=== PATIENT | female | born 1940 | race Caucasian/White ===

== ENCOUNTER 2016-08-07 05:34 | Day surgery (SDC) | payer MEDICARE ==
[~2016-08-07] VITALS: Ht 154.9 cm; Wt 69.0 kg
[~2016-08-07 05:34] MED LIST: ASPI81 PO; AZOR5TAB2 PO; BIOT1CAP2; CALTTAB5 PO; CIPR500T4 PO; CYAN100017 PO; D32000CA PO; EZET10 PO; FISH1000 PO; HYDR-3533 PO; LORA5TAB PO; MAGN400T PO; METF500 PO; PRIL10CA PO; ZOFR4TAB3 SL
[2016-08-07 06:11] VITALS: BP 160/70; PULSE 74; RESP 18; O2SAT 98
[2016-08-07] MEDS ORDERED: VITA10003 PO (06:23)
[2016-08-07] MEDS ORDERED: ALPR0.25 PO (06:23)
[2016-08-07] MEDS ORDERED: ASPI81TA11 PO (06:23)
[2016-08-07] MEDS ORDERED: COENPOW21 PO (06:23)
[2016-08-07] MEDS ORDERED: CALTTAB PO (06:23)
[2016-08-07] MEDS ORDERED: AMLO5 PO (06:23)
[2016-08-07] MEDS ORDERED: CITA10TA4 PO (06:23)
[2016-08-07] MEDS ORDERED: FISH120014 PO (06:23)
[2016-08-07] MEDS ORDERED: VITA100021 SL (06:23)
[2016-08-07] MEDS ORDERED: METF500T PO (06:23)
[2016-08-07] MEDS ORDERED: ZETI10TA5 PO (06:23)
[2016-08-07] MEDS ORDERED: SITA25 PO (06:23)
[2016-08-07 06:27] LABS: AUTOMATED NEUTROPHIL # 5.3 TH/MM3 (1.8-7.7); BASOPHIL # 0.1 TH/MM3 (0-0.2); BASOPHIL % 0.7 % (0.0-2.0); EOSINOPHIL # 0.4 TH/MM3 (0-0.4); EOSINOPHIL % 4.3 % (0.0-4.0); HEMATOCRIT 41.2 % (35.0-46.0); HEMO FLAGS DIFF FINAL; LYMPH % 24.3 % (9.0-44.0); MEAN CELL VOLUME 85.1 FL (80.0-100.0); MEAN CORPUSCULAR HEMOGLOBIN 28.2 PG (27.0-34.0); MEAN CORPUSCULAR HGB CONC 33.1 % (32.0-36.0); MONO % 7.3 % (0.0-8.0); NEUT % 63.4 % (16.0-70.0); PLATELET COUNT 215 TH/MM3 (150-450); RED BLOOD COUNT 4.84 MIL/MM3 (4.00-5.30); RED CELL DISTRIBUTION WIDTH 12.9 % (11.6-17.2); WHITE BLOOD COUNT 8.3 TH/MM3 (4.0-11.0)
[2016-08-07 06:40] LABS: APTT (PATIENT) 27.6 SEC (24.3-30.1); PROTHROMBIN TIME - PATIENT 10.7 SEC (9.8-11.6)
[2016-08-07 06:55] LABS: BICARBONATE 25.2 MEQ/L (21.0-32.0); POTASSIUM 4.4 MEQ/L (3.5-5.1)
[2016-08-07] MEDS ORDERED: HEPARIN-NS/PF INJ 500 ML ONE (07:03)
--- NOTE | 2016-08-07 07:51 | CATHPROC ---
[employer] HIS Report Study Information Study Number Admission Scheduled Start Study Start [id number] 08/07/2016 08/07/2016 Aug 07 2016 6:46AM Study Type Ward Service Left Heart Cath Cardiac Catheterization Referring Institution Admit Source Facility Department 1 Other [facility] College Director Physician and Clinical Staff Initial Gibran Aguilar Certified Adaptive Physical Educator Manuelito Mcdonald,JAC Recorder Kirill Anthony,RT(R) TECH2 Scrub Moris Puentes,RT(R) Procedures Performed Procedure Location (Site) Vessel Name Coronary Angiograms LCA Left Coronary Coronary Angiograms RCA Right Coronary L Heart Cath LV Gram-hand inj. LV LV Ventricle Equipment Time Manager Inventory Control Description Size Mfg Part Number Used/Scraped TRANSDUCER, TRUWAVE 06:47 GRIMES DIETRICH * [id number] Used W/STOCKCOCK [id number] *[id number] *[id number] 06:47 MED[employer] PACK, CCL CUSTOM * Used *[id number] 06:47 Bio PACER PEN, SKIN DUAL W/ RULER * [id number] Used [facility]-4F-- 07:15 [employer] MEDICAL SHEATH, FR4.5 PRELUDE 11CM FR 4.5 Used [id number] 06:47 [employer] MEDICAL WIRE, 3MMJ .035 180CM 180CM Used *[id number] 06:47 NAMIC MANIFOLD, 4 PORT * Used *[id number] 06:47 [employer] OMNIPAQUE, 350 MG, 100ML 100ML [id number] Used [id number] 06:47 [employer] MEDICAL BLANKET,WARM AIR CCL * Used *[id number] History: Current Medications Medication Dosage/Unit Route Frequency Last Date/Time Taken CARVEDILOL ASA CRESTOR Glucophage NORVASC NTG SL History: Allergies Allergy Reaction Aspirin ABLE TO TAKE 81 MG DAILY Codeine N/V Morphine Penicillin Sulfa Dilaudid History: Risk Factors Family History of Hypertension Dyslipidemia Previous [place] Previous Heart Failure Premature CAD Yes Yes Yes No No Prior Valve Prior PCI Prior PCIDate Prior CABG Surgery No Yes 05/01/2016 No Cerebrovascular Peripheral Artery Chronic Lung On Dialysis Diabetes Diabetes Therapy Disease Disease Disease No No No No Yes Oral History: Symptoms/Diagnosis Selection Items Chest pain History: Stress Tests Stress or Imaging Studies Performed Yes Standard Exercise Stress Test No Stress Echo No Stress Test SPECT Stress Test SPECT Result Stress Test SPECT Ischemia Risk/Extent Yes Positive Low Stress Test CMR No Cardiac CTA Coronary Calcium Score No No History: Other Disease Selection Items CAD HTN History: Other Current Smoker Method Quit Packs a Day Years Used Pack Years No Cigarettes 20 Years Ago 1 15 15 Labs Hgb (g/dl) Hct (%) WBC (l/cumm) Platelets (thousands) 12.00-18.00 37.00-55.00 4.80-10.80 140.00-450.00 12.0 38 4.2 169 BUN (mg/dl) Creatinine (mg/dl) BUN:Creatinine (1:x) 8.00-20.00 0.10-9.00 10.00-20.00 5 0.9 5.6 Na (meq/l) K (meq/l) 138.00-146.00 3.80-5.10 141 3.8 INR (PTT:PT) 0.50-2.00 1 Troponin I (ng/ml) CPK (u/l) CPK-MB (ng/ML) 0.40-2.30 37.00-289.00 0.00-7.00 2.35 259 7.3 Medication Medication Total Dose (Bolus/Oral) Medication Total Dosage/Unit 1% XYLOCAINE 20 mL Medications (Bolus/Oral) Medication Time Given Dosage/Unit Administered By Reason 1% XYLOCAINE 08/07/2016 7:28:25 AM 20 mL Gibran Baker 20 mL 1% XYLOCAINE given in lab by Gibran Baker in Right Groin via Subcutaneous. Ordered by Gibran Perdomo. Medication (Drip) Medication Time Given Dosage/Unit Concentration/Unit Diluent (ml) Solution IV Solutions 08/07/2016 7:08:20 AM 0 mL (IV) 500 NaCl .9 Patient arrived on IV Solutions in Left Forearm via Peripheral IV. Pump/Drip Flow = 20 ml/hr using Na Cl .9. Ordered by Gibran Baker. Initial Case Assessment Circulatory - Right Pulses Dorsalis Pedis Femoral 3 2 Scale (0,1,2,3,4,d) Circulatory - Left Pulses Dorsalis Pedis Femoral 3 3 Scale (0,1,2,3,4,d) Circulatory - Lower Extremities Color Lower Right Color Lower Left Normal Normal Neurological State Oriented to time-place- Alert Moves all extremities person Respiration - General SpO2 (%) 97 Final Case Assessment Cardiovascular HR Rhythm NIBP Chest Pain 91 sr 170/85 0 Edema Present Skin color Skin None Normal Warm Dry Circulatory - Right Pulses Dorsalis Pedis Femoral 3 2 Scale (0,1,2,3,4,d) Circulatory - Left Pulses Dorsalis Pedis Femoral 3 3 Scale (0,1,2,3,4,d) Circulatory - Lower Extremities Color Lower Right Color Lower Left Normal Normal Neurological State Oriented to time-place- Alert Moves all extremities person Respiration - General SpO2 (%) 95 Chronological Log Time Study Chronological Log 6:59:00 Patient arrived via Bed. 7:05:09 Reference ECG taken Vitals capture started with the following parameters, Patient=Adult, Interval=5 min, Initial Pr byctxp=062 mmHg, 7:07:24 Deflation Rate=5 mmHg 7:08:05 Patient Name, D.O.B, / Armband Verified By R.N. 7:08:06 Consent signed by the physician and the patient and verified by the College Director staff. 7:08:11 Patient has been NPO for Less than 6Hrs. 7:08:12 Skin Breakdown- none 7:08:13 Patient Warmer Placed on the Table. 7:08:17 Ghassan Prominences Protected 7:08:19 A # 20 IV was noted in the Forearm (left). Grade = 0 Patient arrived on IV Solutions in Left Forearm via Peripheral IV. Pump/Drip Flow = 20 ml/hr us ing NaCl .9. Ordered by 7:08:20 Gibran Baker. 7:08:21 History and physical on the chart or being dictated. Assessment: Initial Case Right Pulses: Chano Ped=3, Femoral=2 Left Pulses: Chano Ped=3, Femoral=3 7:08:22 Lower Right Extremities: Color=Normal Lower Left Extremities: Color=Normal Neurological: State=Alert, Ox3, [place] Respiration: SpO2=97 % 7:08:25 Table restraints applied according to hospital policy 7:08:29 Bilateral groins prepped with 2% chlorhexidine, and with a 3 min. waiting time. 7:08:43 HR=91 bpm, DTHA=322/83 mmhg, SpO2=98.0 %, Resp=13 B/min, Pain=0, Justyna=10, Dash=2 7:13:07 HR=94 bpm, VTMB=052/91 mmhg, SpO2=99.0 %, Resp=29 B/min 7:18:10 HR=93 bpm, UUUE=404/76 mmhg, SpO2=97.0 %, Resp=14 B/min 7:18:23 Pressure channel 1 zeroed. 7:19:20 Pressure channel 1 zeroed. 7:23:11 HR=88 bpm, NSIT=385/76 mmhg, SpO2=97.0 %, Resp=17 B/min, Pain=0, Justyna=10, Dash=2 7:28:08 HR=90 bpm, HBAK=469/80 mmhg, SpO2=96.0 %, Resp=22 B/min, Pain=0, Justyna=10, Dash=2 Time Out. Correct patient, correct procedure,correct physician, ,power injector loaded or not lo aded with contrast with 7:28:18 surgical team present. Time Out Concurred by MD, individual staff and TREE TRIMMER HELPER in procedure 7:28:24 Case Start 20 mL 1% XYLOCAINE given in lab by Gibran Baker in Right Groin via Subcutaneous. Ordered by Samuel, 7:28:25 Gibran. 7:29:03 Access site was Right Femoral Artery. 7:29:16 A SHEATH, FR4.5 PRELUDE 11CM FR 4.5 was advanced into the Fem Art (right) using the Modified Seldinger technique. A JR 4.0 INFINITI CATHETER FR 4 was advanced over a wire. OMNIPAQUE, 350 MG, 100ML 100ML was use d for 7:31:10 injections. Recorded Pressure: LV, HR=93, Condition=Condition 1 7:31:44 (Left Ventricle) LV 193/6/20 Recorded Pressure: LV, Ao, HR=98, Condition=Condition 1 7:32:02 (Left Ventricle) LV 187/10/21, (Aorta) Ao 184/81/129 7:32:35 The LV was manually injected with 10 cc's and visualized. OMNIPAQUE, 350 MG, 100ML 100ML use d. 7:32:45 The RCA was injected and visualized at various angles. OMNIPAQUE, 350 MG, 100ML 100ML used. After removing the current catheter a JL 4.0 INFINITI CATHETER FR 4 was advanced over a WIRE, 3M MJ .035 180CM 7:32:59 180CM. 7:33:05 The LCA was injected and visualized at various angles. OMNIPAQUE, 350 MG, 100ML 100ML used. 7:33:07 HR=91 bpm, FGVB=111/80 mmhg, SpO2=96.0 %, Resp=15 B/min, Pain=0, Justyna=10, Dash=2 Recorded Pressure: Ao, HR=90, Condition=Condition 1 7:33:59 (Aorta) Ao 181/74/122 Recorded Pressure: Ao, HR=93, Condition=Condition 1 7:34:05 (Aorta) Ao 178/74/123 7:35:43 Catheter was removed 7:38:06 HR=91 bpm, BQBV=908/85 mmhg, SpO2=95.0 %, Resp=24 B/min 7:42:53 Vitals capture stopped. Assessment: Final Case, HR=91 BPM, Rhythm=sr, QQVX=387/85 mmhg, Chest Pain=0, Edema=None, Color= Normal, Skin = Warm, Dry Right Pulses: Chano Ped=3, Femoral=2 Left Pulses: Chano Ped=3, Femoral=3 7:45:00 Lower Right Extremities: Color=Normal Lower Left Extremities: Color=Normal Neurological: State=Alert, Ox3, [place] Respiration: SpO2=95 % 7:46:25 Sheath(s) left in place, will be removed in Holding Area 7:46:27 Sterile dressing applied to site 7:46:29 No case complications noted. 7:46:31 Case End 7:46:38 Bedside Report will be given. 7:46:43 Contrast Scanned 7:46:46 A Left Heart Cath was performed. 7:46:52 [facility] 7[facility]46[facility]53 Clinical correlaton risk stratification. End Study - Contrast Media Used In Study Contrast Total Opened (mL) Total Used (mL) Total Wasted (mL) Omnipaque 150 45 105 End Study - Maximum Contrast Load Max Contrast Load (mL) 394.4 End Study - Radiation Exposure Fluoro Time (minutes) 0.8 End Study - Patient Disposition Complications Transferred To Interventional Outcome No College Director Holding No attempt made
[2016-08-07] MEDS ORDERED: SODIUM CHLORIDE 0.9% FLUSH 10 ML FLUSH PRN (08:00)
[2016-08-07] MEDS ORDERED: MISC INFORMATION XX ONE (08:00)
[2016-08-07] MEDS ORDERED: IOHEXOL 350 MG/ML 50 ML BTL (for Cath Lab) OTHER ONE (08:06)
[2016-08-07] MEDS ORDERED: SODIUM CHLORIDE 0.9% FLUSH 10 ML FLUSH SCH (09:00)
--- NOTE | 2016-08-07 10:14 | MA ---
cc: ELICEO TEMPLE M.D. DATE August 07, 2016 PROCEDURE PERFORMED Left heart catheterization, left ventriculography, coronary angiography. INDICATIONS 1. Ne onset unstable angina. [place] [employer] Class IV angina, resting angina. 2. New onset chest pain at rest. 3. History of coronary artery disease with multiple PCIs. 4. Diabetes mellitus. DESCRIPTION OF PROCEDURE The patient was brought to the Cardiac Catheterization Laboratory, prepped and draped in the usual sterile fashion. 10 cc of 1% lidocaine was used to locally anesthetize the right common femoral artery. A 4-Ukrainian sheath was successfully placed in the right common femoral artery. FINDINGS LV pressure is 190/9-10. Ejection fraction is 65%. CORONARY ANGIOGRAPHY The right coronary artery does not appear to be a dominant vessel versus an atypically dominant vessel. I do not see clearly a PDA or ANDREA, however, there is a high bifurcation. The vessel is probably a 2-2.5 mm vessel with diffuse disease. There is a 70% long proximal mid-stenosis and a sequential 75-80% mid-stenosis. This appears to probably be about 35 mm of vessel length. The left main coronary artery has no significant disease angiographically. The LAD is transapical, has mild diffuse disease in the proximal segment, up to 10% angiographically. Stent in the proximal segment is widely patent. The left circumflex vessel is at least codominant. No significant obstructive disease. The first obtuse marginal vessel is a small 0.5-mm vessel with no significant disease angiographically. The second obtuse marginal vessel is a medium-sized vessel with no significant obstructive disease. There is a distal posterolateral artery which is a medium-sized vessel with no significant obstructive disease and a small posterior descending coronary artery with no significant obstructive disease. The first diagonal artery is a small to medium-sized vessel with no significant obstructive disease. The second diagonal vessel is a small to medium-sized vessel with no significant obstructive disease. CONCLUSION 1. Severe one-vessel coronary disease in what appears to be a left dominant system or a co-dominant system. 2. Widely patent stents in the LAD and diagonal vessel. There is normal LV systolic function, ejection fraction 65%. 3. LV end-diastolic pressure is 10 mmHg suggesting the patient's dyspnea is not cardiac in origin. 4. Regarding the right coronary artery, the vessel is a small vessel with diffuse disease, two sequential lesions 70-80%, probably spanning 30-35-mm of vessel length. The patient's chest pain is not exertionally precipitated, therefore I think her pain is atypical. I do think, if the pain is persistent or worsening chest pain, consideration could be made to balloon angioplasty or possibly stent the right coronary artery. However, I think this would be a high-risk procedure given the long lesion length and small vessel diameter for either dissection from PTCA and/or stent thrombosis or in-stent stenosis from long stent. Therefore would try to exhaust all medical options prior to considering PCI of this vessel. MD BLAIR Samaniego/TASIA /7:45 AM /9:44 AM
--- NOTE | 2016-08-08 22:06 | EKG ---
Date Performed: 08/07/2016 Time Performed: 06:22:06 PTAGE: 76 years EKG: Sinus rhythm Normal ECG PREVIOUS TRACING : 11/09/2013 11.21 Compared to prior tracing no significant change DOCTOR: Wilbur Esquivel Interpretating Date/Time 08/08/2016 22:05:43
== END 2016-08-07 12:45 | disposition home or self-care (01) ==
LOC: HDOC 05:34 → HDIC 05:35 → HDOC 12:45
PROVIDERS: ATTEND Internal Medicine Interventional Cardiology
DX: I20.0 Unstable angina (principal); I25.10 Atherosclerotic heart disease of native coronary artery without angina pectoris; E11.9 Type 2 diabetes mellitus without complications; Z79.84 Long term (current) use of oral hypoglycemic drugs
CPT/HCPCS: 80048; 85025; 85610; 85730; 93005; 93458; C1769; C1893; J1644; Q9967